=== PATIENT | male | born 1950 | race Caucasian/White ===

== ENCOUNTER 2016-05-29 10:08 | Emergency (ER) | payer BC ==
--- NOTE | 2016-05-29 11:51 | ED NURSING NOTES ---
Clinical Report - Nurses [facility] [address] [place] [address] 05/29/2016 10:09 Patient: RACQUEL DESAI TRIAGE Triage time 1015. Acuity: LEVEL 3. Chief Complaint: ABDOMINAL PAIN and (LLQ abd pain, he describes as sharp and comes and goes. states pain went away last night when he layed down). 10:15. --10:24 Allie Minaya R.N. 10:15 05/29/16. BP: 166/88. HR: 68. RR: 18. O2 saturation: 96%. Temp: 98.4 F. Pain level now 3. --10:24 Allie Minaya R.N. Weight: 108.8 kg stated. Height/Length: 67 inches Per Patient. BMI: 37.6. --10:20 Allie Minaya R.N. Medications Atorvastatin Calcium Oral 10 mg, daily. Chlorthalidone Oral (Tablet 25 mg). Claritin Oral. Famotidine Oral 40 mg, daily. Metoprolol Succinate ER Oral 50 mg . MiraLax Oral. --10:22 Allie Minaya R.N. Allergies No Known Drug Allergy. --10:22 Allie Minaya R.N. History Arrived by private vehicle. Historian: patient. Unaccompanied. Primary physician (artur sharpe). This started yesterday. He has had nausea, constipation and abdominal pain. ( took Mirilax on , with + results.). No vomiting. SOCIAL HX: Never smoker. No alcohol use or drug use. --10:24 Allie Minaya R.N. PROBLEMS: Constipation. Hypercholesterolemia. Seasonal allergic rhinitis. Chronic pain. Hypertension. --10:22 Allie Minaya R.N. ADDITIONAL SURGERIES: Cholecystectomy. Cysts removed from tailbone. Dental Surgery. Knee Replacement (L Knee). Nasal surgery. Shoulder Surgery. Tonsillectomy. --10:22 Allie Minaya R.N. Interventions ID band on patient. To treatment room. --10:24 Allie Minaya R.N. PHYSICAL ASSESSMENT 10:15. Ambulatory to room. Patient gowned. GENERAL / NEURO / PSYCH: Alert. Oriented X 4. Appears in no acute distress. RESPIRATORY: Respirations not labored. CVS: Capillary refill less than 2 seconds. GI / : The patient has had nausea. No emesis noted. ( last BM today, still having effects of Mirilax- stool not solid, but no blood or black stools noted). SKIN: Skin is warm and dry. --10:26 Allie Minaya R.N. NURSING PROGRESS NOTES 10:15. Patient gowned. Reassurance given. Patient identifiers checked. Call light placed in reach. Side rails up. Bed placed in lowest position. Patient ready for evaluation- chart flagged. --10:25 Allie Minaya R.N. 11:20 05/29/16. Patient ID band checked for patient name and birthdate. Clean catch urine collected with return of yellow-colored clear urine; sample sent to lab for urinalysis and culture. Specimen labeled in the presence of the patient. --11:20 Allie Minaya R.N. DISPOSITION / DISCHARGE 11:55. Condition at departure: improved and stable. No learning barriers present. Discharge instructions provided and reviewed with the patient. Reviewed medication(s) (cont. usual meds). Patient verbalized understanding. Written instructions provided in Sinhala. The patient was discharged home and unaccompanied at time of discharge. He left the Emergency Department ambulatory and via private vehicle. Patient driving. --12:05 Allie Minaya R.N. 11:55 05/29/16. BP: 138/78. HR: 59. RR: 20. O2 saturation: 96%. Temp: 97.9 F. Pain level now: 05/07. --12:05 Allie Minaya R.N. Locked/Released at 05/29/2016 12:06 by Allie Minaya R.N.
--- NOTE | 2016-05-29 11:51 | ED ORDER SUMMARY ---
..... Patient: RACQUEL DESAI OrderSheet [facility] VisitID: [id number] [address] [place] [address] 66y, M Registration Date/Time: 05/29/2016 ORDER SHEET Weight: 108.8 kg (stated) Allergies: No Known Drug Allergy GENERAL ORDERS: UA-Culture if indicated Urgent (10:52 05/29/2016 Shanon SORTO) (Ack 10:55 TBergley) (11:19 TBergley) MEDICATION ORDERS: IV FLUIDS: ORDER SHEET NOTES: [Electronically signed by Allie Minaya R.N. (12:06 05/29/2016)] [Electronically signed by Aram Ha MD (12:59 05/29/2016)] [Electronically locked/signed by Allie Minaya R.N. (12:06 05/29/2016)]
--- NOTE | 2016-05-29 11:51 | ED CLINICAL REPORT ---
Clinical Report - Physicians/Mid Levels [facility] [address] [place] [address] 05/29/2016 10:09 Patient: RACQUEL DESAI Time Seen: 10:27. Arrived- By private vehicle. Historian- patient. HISTORY OF PRESENT ILLNESS Chief Complaint: ABDOMINAL PAIN. At its maximum, severity described as 7 / 10. When seen in the E.D., severity described as 4 / 10. Modifying factors- (Worse with palpation, inconsistently worse with walking. A little better with urination. No change with cough). This started yesterday Sharp pain in the left groin covering 4x3 inches, does not radiate to testes. It is described as "pain" and sharp and it is described as located in the left pelvis. No nausea, loss of appetite, vomiting or diarrhea. Similar symptoms previously: Occasionally, milder. Recent medical care: The patient was seen recently by a health care provider. ( Constipation, Rx 11 doses of Miralax.). REVIEW OF SYSTEMS No constipation, difficulty with urination, pain with urination, sore throat or blurred vision. No chest pain, difficulty breathing, cough, joint pain or skin rash. He has had a mild headache. PAST HISTORY PCP: Dr Bernabe [facility];ADDITIONAL SURGERIES: Cholecystectomy. Cysts removed from tailbone. Dental Surgery. Knee Replacement (L Knee). R knee arthroscopy Nasal surgery. Shoulder Surgery. Tonsillectomy. Constipation. Hypercholesterolemia. Seasonal allergic rhinitis. Chronic pain. Hypertension. SOCIAL HISTORY Never smoker. ADDITIONAL NOTES The nursing notes have been reviewed. PHYSICAL EXAM Vital Signs: 05/29/2016 11:55 BP: 138/78. HR: 59. RR: 20. O2 saturation: 96%. Temp: 97.9 F. Pain level now: 05/07. 05/29/2016 10:15 BP: 166/88. HR: 68. RR: 18. O2 saturation: 96%. Temp: 98.4 F. Appearance: Alert. No acute distress. Eyes: Eyes normal inspection. ENT: Pharynx normal. CVS: Heart sounds normal. Respiratory: No respiratory distress. Breath sounds normal. Chest nontender. Abdomen: Soft. No rebound tenderness or guarding. (No tenderness above the inguinal ligament. Tender over the abdominal wall course of the spermatic cord on the left. No mass palpable. Exam compromised by habitus.). Back: Normal inspection. No CVA tenderness. : Normal genitalia. Testes descended. No tenderness present. No tenderness of the left testicle, epididymis or spermatic cord. Skin: Skin warm. Normal skin color. Extremities: Extremities exhibit normal ROM. No lower extremity edema. LABS, X-RAYS, AND EKG Laboratory Tests: UA-Culture if indicated: (RHONDA: 05/29/2016 11:15) ( MsgRcvd 05/29/2016 11:34) Final results Test Result Flag Units (Reference) URINE COLOR YELLOW URINE APPEARANCE CLEAR URINE GLUCOSE NEGATIVE (NEGATIVE) URINE BILIRUBIN NEGATIVE (NEGATIVE) URINE KETONE NEGATIVE (NEGATIVE) URINE SPECIFIC GRAVITY 1.020 (1.010-1.030) URINE PH 6.0 (5.0-8.0) URINE PROTEIN NEGATIVE (NEGATIVE) URINE UROBILINOGEN 0.2 EU/dL (0.2-1.0) URINE NITRITE NEGATIVE (NEGATIVE) URINE BLOOD NEGATIVE (NEGATIVE) URINE LEUK ESTERASE NEGATIVE (NEGATIVE) URINE RBC 0-1 rbc/hpf (0-1) URINE WBC 0-1 wbc/hpf (0-1) URINE EPITHELIAL CELLS NONE SEEN EPI/hpf (0-5) URINE BACTERIA FEW (1+) (NONE SEEN) URINE COMMENT CULT NOT INDICATED 0-1 HYALINE CAST. 2+ MUCOUS. RARE YEASTURINE CULTURES ARE SET-UP BASED ON THE FOLLOWING CRITERIA:POSITIVE NITRITEPOSITIVE LEUKOCYTE ESTERASEGREATER THAN 10 WHITE BLOOD CELLSMODERATE (2+) OR GREATER BACTERIA . PROGRESS AND PROCEDURES Course of Care: 12:57 05/29/16. Not diverticulitis by lack of pain above the inguinal ligament. Not incarcerated or Philippe's hernia by mild pain and tenderness. No indirect inguinal hernia by palpation. This is a direct inguinal hernia by hx and exam. Disposition: Discharged. Condition: stable. CLINICAL IMPRESSION Abdominal pain. Probable left inguinal hernia (Direct). INSTRUCTIONS (IMMEDIATE RECHECK FOR INCREASING PAIN). Understanding of the discharge instructions verbalized by patient. Follow-up with: Marbin Lake MD, General Surgeon, , [facility], [address], [place], [address] Follow up. Reason for referral: EVALUATE L INGUINAL HERNIA. (Electronically signed by Aram Ha MD 05/29/2016 12:59)
--- NOTE | 2016-05-29 11:51 | ED ORDER SUMMARY ---
..... Patient: RACQUEL DESAI OrderSheet [facility] VisitID: [id number] [address] [place] [address] 66y, M Registration Date/Time: 05/29/2016 ORDER SHEET Weight: 108.8 kg (stated) Allergies: No Known Drug Allergy GENERAL ORDERS: UA-Culture if indicated Urgent (10:52 05/29/2016 Shanon SORTO) (Ack 10:55 TBergley) (11:19 TBergley) MEDICATION ORDERS: IV FLUIDS: ORDER SHEET NOTES: [Electronically signed by Allie Minaya R.N. (12:06 05/29/2016)] [Electronically signed by Aram Ha MD (12:59 05/29/2016)] [Electronically locked/signed by Allie Minaya R.N. (12:06 05/29/2016)]
--- NOTE | 2016-05-29 11:51 | ED CLINICAL REPORT ---
Clinical Report - Physicians/Mid Levels [facility] [address] [place] [address] 05/29/2016 10:09 Patient: RACQUEL DESAI Time Seen: 10:27. Arrived- By private vehicle. Historian- patient. HISTORY OF PRESENT ILLNESS Chief Complaint: ABDOMINAL PAIN. At its maximum, severity described as 7 / 10. When seen in the E.D., severity described as 4 / 10. Modifying factors- (Worse with palpation, inconsistently worse with walking. A little better with urination. No change with cough). This started yesterday Sharp pain in the left groin covering 4x3 inches, does not radiate to testes. It is described as "pain" and sharp and it is described as located in the left pelvis. No nausea, loss of appetite, vomiting or diarrhea. Similar symptoms previously: Occasionally, milder. Recent medical care: The patient was seen recently by a health care provider. ( Constipation, Rx 11 doses of Miralax.). REVIEW OF SYSTEMS No constipation, difficulty with urination, pain with urination, sore throat or blurred vision. No chest pain, difficulty breathing, cough, joint pain or skin rash. He has had a mild headache. PAST HISTORY PCP: Dr Bernabe [facility];ADDITIONAL SURGERIES: Cholecystectomy. Cysts removed from tailbone. Dental Surgery. Knee Replacement (L Knee). R knee arthroscopy Nasal surgery. Shoulder Surgery. Tonsillectomy. Constipation. Hypercholesterolemia. Seasonal allergic rhinitis. Chronic pain. Hypertension. SOCIAL HISTORY Never smoker. ADDITIONAL NOTES The nursing notes have been reviewed. PHYSICAL EXAM Vital Signs: 05/29/2016 11:55 BP: 138/78. HR: 59. RR: 20. O2 saturation: 96%. Temp: 97.9 F. Pain level now: 05/07. 05/29/2016 10:15 BP: 166/88. HR: 68. RR: 18. O2 saturation: 96%. Temp: 98.4 F. Appearance: Alert. No acute distress. Eyes: Eyes normal inspection. ENT: Pharynx normal. CVS: Heart sounds normal. Respiratory: No respiratory distress. Breath sounds normal. Chest nontender. Abdomen: Soft. No rebound tenderness or guarding. (No tenderness above the inguinal ligament. Tender over the abdominal wall course of the spermatic cord on the left. No mass palpable. Exam compromised by habitus.). Back: Normal inspection. No CVA tenderness. : Normal genitalia. Testes descended. No tenderness present. No tenderness of the left testicle, epididymis or spermatic cord. Skin: Skin warm. Normal skin color. Extremities: Extremities exhibit normal ROM. No lower extremity edema. LABS, X-RAYS, AND EKG Laboratory Tests: UA-Culture if indicated: (RHONDA: 05/29/2016 11:15) ( MsgRcvd 05/29/2016 11:34) Final results Test Result Flag Units (Reference) URINE COLOR YELLOW URINE APPEARANCE CLEAR URINE GLUCOSE NEGATIVE (NEGATIVE) URINE BILIRUBIN NEGATIVE (NEGATIVE) URINE KETONE NEGATIVE (NEGATIVE) URINE SPECIFIC GRAVITY 1.020 (1.010-1.030) URINE PH 6.0 (5.0-8.0) URINE PROTEIN NEGATIVE (NEGATIVE) URINE UROBILINOGEN 0.2 EU/dL (0.2-1.0) URINE NITRITE NEGATIVE (NEGATIVE) URINE BLOOD NEGATIVE (NEGATIVE) URINE LEUK ESTERASE NEGATIVE (NEGATIVE) URINE RBC 0-1 rbc/hpf (0-1) URINE WBC 0-1 wbc/hpf (0-1) URINE EPITHELIAL CELLS NONE SEEN EPI/hpf (0-5) URINE BACTERIA FEW (1+) (NONE SEEN) URINE COMMENT CULT NOT INDICATED 0-1 HYALINE CAST. 2+ MUCOUS. RARE YEASTURINE CULTURES ARE SET-UP BASED ON THE FOLLOWING CRITERIA:POSITIVE NITRITEPOSITIVE LEUKOCYTE ESTERASEGREATER THAN 10 WHITE BLOOD CELLSMODERATE (2+) OR GREATER BACTERIA . PROGRESS AND PROCEDURES Course of Care: 12:57 05/29/16. Not diverticulitis by lack of pain above the inguinal ligament. Not incarcerated or Philippe's hernia by mild pain and tenderness. No indirect inguinal hernia by palpation. This is a direct inguinal hernia by hx and exam. Disposition: Discharged. Condition: stable. CLINICAL IMPRESSION Abdominal pain. Probable left inguinal hernia (Direct). INSTRUCTIONS (IMMEDIATE RECHECK FOR INCREASING PAIN). Understanding of the discharge instructions verbalized by patient. Follow-up with: Marbin Lake MD, General Surgeon, , [facility], [address], [place], [address] Follow up. Reason for referral: EVALUATE L INGUINAL HERNIA. (Electronically signed by Aram Ha MD 05/29/2016 12:59)
--- NOTE | 2016-05-29 13:00 | ED MED RECONCILIATION SUMMARY ---
Patient: RACQUEL DESAI Medication Reconciliation Report [facility] VisitID: [id number] [address] [place] [address] 66y, M Registration Date/Time: 05/29/2016 Weight: 108.8 kg Height/Length: 67 in. BMI: 37.6 ALLERGIES: No Known Drug Allergy The patient's Home Medications are listed below: THE FOLLOWING MEDICATIONS NEED TO BE RECONCILED: Atorvastatin Calcium Oral 10 mg, daily Chlorthalidone Oral (25 mg) Claritin Oral Famotidine Oral 40 mg, daily Metoprolol Succinate ER Oral 50 mg MiraLax Oral The source(s) of the original Home Medication information: Not obtained. The following Medications were given to the patient in the Emergency Department: None. The following Medications were prescribed to the patient: None.
--- NOTE | 2016-05-29 13:00 | ED DISCHARGE INSTRUCTIONS ---
Patient: RACQUEL DESAI General Instructions [facility] VisitID: [id number] [address] [place], [place] [id number] 66y, M Registration Date/Time: 05/29/2016 Abdominal pain. Probable left inguinal hernia (Direct). INSTRUCTIONS (IMMEDIATE RECHECK FOR INCREASING PAIN). Understanding of the discharge instructions verbalized by patient. Follow-up with: Marbin Lake MD, General Surgeon, , [facility], [address] [place] [address] [address], [place], [address] Follow up. Reason for referral: EVALUATE L INGUINAL HERNIA. ADDITIONAL INFORMATION Hernia [Adult] A hernia is a bulge of the intestines or surrounding tissues through a tear in the muscle of the abdomen or groin. This may occur as a result of excessive coughing, heavy lifting or being overweight. It can also occur at the site of prior surgery. When a hernia first appears it may be painful due to stretching and tearing of the muscle fibers. When you lie down, the bulge should reduce in size or disappear completely. If it does not, and you are unable to flatten it with your hand, medical attention is needed at once. Home Care: Avoid heavy lifting and straining or any activities that cause pain in the hernia. Follow Up with your physician as directed by our staff. Get Prompt Medical Attention if any of the following occur: Increasing size of the hernia Increasing pain in the hernia A hernia that does not get smaller when you lie down Hardening of the hernia Abdominal swelling, fever or repeated vomiting Pain moves to the lower right abdomen (just below the waistline) or spreads to the back You have been given the following additional information: Hernia (Inguinal, Ventral, Umbilical) (Electronically signed by Aram Ha MD 05/29/2016 12:59)
--- NOTE | 2016-05-29 13:00 | ED MAR SUMMARY ---
..... Medication Administration Record [facility] [address] [place], [place] [id number] Patient: RACQUEL DESAI Visit ID: [id number] 66y, M Weight: 108.8 kg Height/Length: 67 in BMI: 37.6 ALLERGIES: No Known Drug Allergy
--- NOTE | 2016-05-29 13:00 | ED DISCHARGE INSTRUCTIONS ---
Patient: RACQUEL DESAI General Instructions [facility] VisitID: [id number] [address] [place], [place] [id number] 66y, M Registration Date/Time: 05/29/2016 Abdominal pain. Probable left inguinal hernia (Direct). INSTRUCTIONS (IMMEDIATE RECHECK FOR INCREASING PAIN). Understanding of the discharge instructions verbalized by patient. Follow-up with: Marbin Lake MD, General Surgeon, , [facility], [address] [place] [address] [address], [place], [address] Follow up. Reason for referral: EVALUATE L INGUINAL HERNIA. ADDITIONAL INFORMATION Hernia [Adult] A hernia is a bulge of the intestines or surrounding tissues through a tear in the muscle of the abdomen or groin. This may occur as a result of excessive coughing, heavy lifting or being overweight. It can also occur at the site of prior surgery. When a hernia first appears it may be painful due to stretching and tearing of the muscle fibers. When you lie down, the bulge should reduce in size or disappear completely. If it does not, and you are unable to flatten it with your hand, medical attention is needed at once. Home Care: Avoid heavy lifting and straining or any activities that cause pain in the hernia. Follow Up with your physician as directed by our staff. Get Prompt Medical Attention if any of the following occur: Increasing size of the hernia Increasing pain in the hernia A hernia that does not get smaller when you lie down Hardening of the hernia Abdominal swelling, fever or repeated vomiting Pain moves to the lower right abdomen (just below the waistline) or spreads to the back You have been given the following additional information: Hernia (Inguinal, Ventral, Umbilical) (Electronically signed by Aram Ha MD 05/29/2016 12:59)
--- NOTE | 2016-05-29 13:00 | ED MAR SUMMARY ---
..... Medication Administration Record [facility] [address] [place], [place] [id number] Patient: RACQUEL DESAI Visit ID: [id number] 66y, M Weight: 108.8 kg Height/Length: 67 in BMI: 37.6 ALLERGIES: No Known Drug Allergy
--- NOTE | 2016-05-29 13:00 | ED MED RECONCILIATION SUMMARY ---
Patient: RACQUEL DESAI Medication Reconciliation Report [facility] VisitID: [id number] [address] [place] [address] 66y, M Registration Date/Time: 05/29/2016 Weight: 108.8 kg Height/Length: 67 in. BMI: 37.6 ALLERGIES: No Known Drug Allergy The patient's Home Medications are listed below: THE FOLLOWING MEDICATIONS NEED TO BE RECONCILED: Atorvastatin Calcium Oral 10 mg, daily Chlorthalidone Oral (25 mg) Claritin Oral Famotidine Oral 40 mg, daily Metoprolol Succinate ER Oral 50 mg MiraLax Oral The source(s) of the original Home Medication information: Not obtained. The following Medications were given to the patient in the Emergency Department: None. The following Medications were prescribed to the patient: None.
== END 2016-05-29 11:55 | disposition home or self-care (01) ==
LOC: ED SRH 10:08
DX: R10.32 Left lower quadrant pain (principal); I10 Essential (primary) hypertension; Z79.899 Other long term (current) drug therapy
CPT/HCPCS: 90004